=== PATIENT | male | born 1995 | race Caucasian/White ===

== ENCOUNTER 2018-10-31 15:26 | Emergency (ER) | payer BC ==
[2018-10-31 15:59] VITALS: BP 111/67
--- NOTE | 2018-10-31 16:20 | UC ---
Lower Extremity/Ankle HPI - HPI Summary HPI Summary: 23 yo male presents with LEFT ankle injury. He tells me that 2 days ago he was playing kickball and was running into [place] when he inverted his ankle and heard several pops. Since that time has developed swelling and bruising. Pain and ROM have improved, but the bruising concerned him for fracture or ligament rupture. He, admittedly, has not been resting or elevating his ankle often - but has been applying ice. He denies numbness or tingling. He is ambulatory without assistance. - History of Current Complaint Chief Complaint: UCLowerExtremity Stated Complaint: L ANKLE INJURY Time Seen by Provider: 10/31/18 16:19 Hx Obtained From: Patient Severity Initially: Mild Severity Currently: Mild Pain Intensity: 3 Pain Scale Used: 0-10 Numeric Aggravating Factor(s): Standing, Ambulation Able to Bear Weight: Yes - Allergies/Home Medications Allergies/Adverse Reactions: Allergies Allergy/AdvReac Type Severity Reaction Status Date / Time No Known Allergies Allergy Verified 10/31/18 15:59 Home Medications: Home Medications NK [No Home Medications Reported] 10/31/18 [History Confirmed 10/31/18] PMH/Surg Hx/FS Hx/Imm Hx - Additional Past Medical History Additional PMH: None - Surgical History Surgical History: Yes Surgery Procedure, Year, and Place: appendectomy 2017 - Family History Known Family History: Positive: None - Social History Lives: With Family Alcohol Use: Daily Alcohol Amount: 1 beer Substance Use Type: None Smoking Status (MU): Light Every Day Tobacco Smoker Review of Systems All Other Systems Reviewed And Are Negative: Yes Constitutional: Positive: Negative Skin: Positive: Bruising - left ankle Respiratory: Positive: Negative Cardiovascular: Positive: Negative Neurovascular: Positive: Negative Musculoskeletal: Positive: Other: - Left ankle pain Neurological: Positive: Negative Psychological: Positive: Negative Physical Exam - Summary Physical Exam Summary: GENERAL: NAD. WDWN. No pain distress. SKIN: No rashes, sores, lesions, or open wounds. CHEST: No accessory muscle use. Breathing comfortably and in no distress. CV: Pulses intact PT and DP. Cap refill <2seconds MSK: LEFT ANKLE: Mild edema at lateral malleolus with mild ecchymsis as inferior aspect at base of foot. Mild TTP at ATFL. FROM. Strength 5/5. Negative talar tilt. No increased laxity. NEURO: Alert. Sensations intact and symmetric B/L LEs PSYCH: Age appropriate behavior. Triage Information Reviewed: Yes Vital Signs: Initial Vital Signs Temp 98.4 F 10/31/18 15:54 Pulse 80 10/31/18 15:54 Resp 12 10/31/18 15:54 BP 111/67 10/31/18 15:54 Pulse Ox 100 10/31/18 15:54 Vital Signs Reviewed: Yes Lower Extremity Course/Dx - Course Course Of Treatment: XR: IMPRESSION: Soft tissue swelling laterally without fracture. Discussed results with pt. He declined crutches, gel splint, and CAM boot. Advised to continue RICE therapy and f/u with Sports medicine if symptoms do not continue improving. - Differential Dx/Diagnosis Provider Diagnosis: Left ankle sprain Discharge - Sign-Out/Discharge Documenting (check all that apply): Patient Departure All imaging exams completed and their final reports reviewed: Yes - Discharge Plan Condition: Stable Disposition: HOME Patient Education Materials: Ankle Sprain (ED) Referrals: No Primary Care Phys,NOPCP [Primary Care Provider] - Sports Medicine [facility] [Provider Group] - If Needed Additional Instructions: If you develop a fever, shortness of breath, chest pain, new or worsening symptoms - please call your PCP or go to the ED immediately. Your X-Rays today did not show any fracture 1) Rest, Ice, and elevate your ankle intermittently throughout the day to decrease swelling and discomfort 2) May take tylenol or ibuprofen as directed for discomfort 3) If your symptoms do not improve in 5-7 days, please call Orthopedics at the number below to schedule an appointment for a recheck - Billing Disposition and Condition Condition: STABLE Disposition: Home - Attestation Statements Provider Attestation: Per institutional requirements, I have reviewed the chart, however, I was not consulted specifically or made aware of this patient by the midlevel provider. I did not personally evaluate, interact with , or disposition this patient.
== END 2018-10-31 16:46 | disposition home or self-care (01) ==
LOC: UCEAST 15:26
DX: S93.402A Sprain of unspecified ligament of left ankle, initial encounter (principal); X50.9XXA Other and unspecified overexertion or strenuous movements or postures, initial encounter; Y93.6A Activity, physical games generally associated with school recess, summer camp and children; Y92.328 Other athletic field as the place of occurrence of the external cause; Y99.8 Other external cause status; F17.210 Nicotine dependence, cigarettes, uncomplicated
CPT/HCPCS: 99201; G0463